=== PATIENT | female | born 1985 | race Caucasian/White ===

== ENCOUNTER → 2017-07-25 | Outpatient (CLI) | payer OTHER ==
--- NOTE | 2017-07-25 15:37 | US ---
EXAMINATION TYPE: Transabdominal DATE OF EXAM: 05/13/17 COMPARISON: NONE CLINICAL HISTORY: Z36 Confirma Dates. Confirm dates, 3, para 2 EXAM PERFORMED: Transabdominal (TA) EXAM MEASUREMENTS: GESTATIONAL AGE / DATING Physician Established: Not established yet Dates by LMP: (10 weeks/3 days) EDC: 02/17/2018 Dates by First Scan: This is 1st scan Dates by Current Scan for: (12 weeks/0 days) EDC: 02/06/2018 MATERNAL ANATOMY Uterus: 13.6 x 6.5 x 8.1cm, anteverted Right Ovary: 2.9 x 2.6 x 1.5cm Left Ovary: 3.1 x 2.4 x 1.5cm Post CDS / Adnexa: wnl Presence of free fluid: wnl Presence of corpus luteal cyst: not seen Presence of subchorionic bleed: 1.9 x 0.8 x 1.2cm complex area posterior to gestational sac, possible subchorionic bleed GESTATION / SURVEY CRL: 5.2cm (12 weeks/0 days) Yolk Sac (normal less than 6mm): 5.5mm Heart Rate: 169 bpm Rhythm: Normal IUP: Viable IUP Nuchal Translucency 10-14wks (normal less than 3mm): 1.6mm Date of LMP: 05/13/2017 Beta HcG (if available): Not available at time of exam Viable single IUP measuring 12 weeks 0 days with a heart rate 169bpm and an estimated delivery date o f 02/06/2018. IMPRESSION: 1. Single live intrauterine with a sonographic age of 12 weeks and 0 days and estimated autumn e of delivery of 02/06/2018, discordant with menstrual age. 2. Small subchorionic hemorrhage occupying less than 25% the gestational sac diameter.
== END | disposition home or self-care (01) ==
LOC: RADUSWWP 13:31
PROVIDERS: ATTEND Obstetrics & Gynecology
DX: O20.8 Other hemorrhage in early pregnancy (principal); Z3A.12 12 weeks gestation of pregnancy
CPT/HCPCS: 76801; 76813

== ENCOUNTER 2018-01-30 06:00 | Inpatient (IN) | payer MEDICAID, OTHER ==
[2018-01-30] MEDS ORDERED: TERBUTALINE 1 MG/ML VIAL SQ PRN (06:44)
[2018-01-30] MEDS ORDERED: CARBOPROST TROMETHAMINE 250 MCG/ML 1 ML AMP IM PRN (06:44)
[2018-01-30] MEDS ORDERED: OXYTOCIN 10 UNIT/ML 1 ML VIAL IM PRN (06:44)
[2018-01-30] MEDS ORDERED: METHYLERGONOVINE 0.2 MG/ML 1 ML AMP IM PRN (06:44)
[2018-01-30] MEDS ORDERED: LIDOCAINE 0.5% (PF) 5 MG/ML (50 ML SDV) SQ PRN (06:44)
[2018-01-30] MEDS ORDERED: OXYTOCIN 20 UNITS/1000 ML NS 1,000 ML IV SCH (06:45)
[2018-01-30] MEDS: LACTATED RINGERS 1,000 ML IV SCH ×3 (06:49→13:31)
[2018-01-30 07:19] VITALS: BMI 32.2
[2018-01-30 07:30] LABS: Basophils % (A) 0 %; Eosinophils # (A) 0.2 k/uL (0-0.7); Eosinophils % (A) 1 %; HCT 41.8 % (34.0-46.0); HGB 13.9 gm/dL (11.4-16.0); Lymphocytes % (A) 17 %; MCH 29.1 pg (25.0-35.0); MCHC 33.3 g/dL (31.0-37.0); MCV 87.4 fL (80.0-100.0); Mean Platelet Volume 7.7; Monocytes # (A) 0.6 k/uL (0-1.0); Monocytes % (A) 5 %; Neutrophils # (A) 8.6 k/uL (1.3-7.7); Neutrophils % (A) 74 %; Platelet Count 274 k/uL (150-450); RBC 4.78 m/uL (3.80-5.40); RDW 14.1 % (11.5-15.5); WBC 11.6 k/uL (3.8-10.6)
[2018-01-30] MEDS ORDERED: SODIUM CHLORIDE 0.9% 100 ML BAG ONE (10:09)
[2018-01-30] MEDS ORDERED: fentaNYL (PF) 50 MCG/ML 5 ML AMP ONE (10:09)
[2018-01-30] MEDS ORDERED: ROPIVACAINE 5MG/ML 20ML VIAL ONE (10:09)
[2018-01-30] MEDS ORDERED: LANOLIN CREAM 5 GM TUBE TOPICAL PRN (17:07)
[2018-01-30] MEDS ORDERED: ACETAMINOPHEN TAB 325 MG TAB PO PRN (17:07)
[2018-01-30] MEDS ORDERED: WITCH HAZEL 1 EACH MED..PAD TOPICAL PRN (17:07)
[2018-01-30] MEDS ORDERED: ZOLPIDEM 5 MG TAB PO PRN (17:07)
[2018-01-30] MEDS ORDERED: HYDROCORTISONE 2.5% RECTAL CREAM 30 GM TUBE RECTAL PRN (17:07)
[2018-01-30] MEDS ORDERED: diphenhydrAMINE 50 MG CAP PO PRN (17:07)
[2018-01-30] MEDS ORDERED: diphenhydrAMINE 50 MG/ML 1 ML VIAL IVP PRN ×2 (17:07)
[2018-01-30] MEDS ORDERED: BENZOCAINE/MENTHOL SPRAY 1 GM/SPRAY AEROSOL TOPICAL PRN (17:07)
[2018-01-30] MEDS ORDERED: SIMETHICONE 80 MG CHEWABLE PO PRN (17:07)
[2018-01-30] MEDS ORDERED: diphenhydrAMINE 25 MG CAP PO PRN (17:07)
--- NOTE | 2018-01-30 17:09 | P.HPOB ---
History of Present Illness H&P Date: 01/30/18 Chief Complaint: Intrauterine at 39 weeks': Induction of labor Patient is a 32-year-old at 39 weeks gestation arise for induction of labor. Her course has been, complicated by thyroid disease but her symptoms were essentially nonexistent and she was not started on thyroid medication. She'll need to have that followed up after delivery. She also had some anxiety but overall she is done well. Today her vital signs are stable and afebrile. Heart regular, lungs clear, extremities are without pain. She was dilated to 4 cm artificial rupture membranes and light meconium noted. heart tracings are reactive in the 130s to 140s category 1 tracing. Pertinent labs include O+ blood type Rh antibody was negative, rubella immune, hepatitis B surface antigen/RPR/HIV were all negative. She plans to use an epidural for analgesia. Assessment intrauterine at 39 weeks plan expect spontaneous vaginal delivery. Past Medical History History of Any Multi-Drug Resistant Organisms: None Reported Past Surgical History: Ear Surgery Additional Past Surgical History / Comment(s): childhood Past Anesthesia/Blood Transfusion Reactions: No Reported Reaction Past Psychological History: Anxiety, Depression Additional Psychological History / Comment(s): previously using medications for therapy, discontinued use with Smoking Status: Current every day smoker Past Alcohol Use History: None Reported Past Drug Use History: None Reported - Past Family History Mother Family Medical History: Diabetes Mellitus Medications and Allergies Home Medications Medication Instructions Recorded Confirmed Type 78/Iron/Folate 1/Dha 1 tab PO ONCE 01/30/18 01/30/18 History [Prenate Dha Softgel] Allergies Allergy/AdvReac Type Severity Reaction Status Date / Time No Known Allergies Allergy Verified 01/30/18 06:37 Exam Osteopathic Statement: *. No significant issues noted on an osteopathic structural exam other than those noted in the History and Physical/Consult. Intake and Output 01/30/18 01/30/18 01/30/18 06:59 14:59 22:59 Other: Weight 82.554 kg 82.554 kg Results Result Diagrams: 01/30/18 06:50 Abnormal Lab Results - Last 24 Hours (Table) 01/30/18 Range/Units 06:50 WBC 11.6 H (3.8-10.6) k/uL Neutrophils # 8.6 H (1.3-7.7) k/uL
--- NOTE | 2018-01-30 17:11 | P.PROBDLV ---
Vaginal Delivery Note - . Vaginal Delivery Note: Patient progressed to complete and pushing with spontaneous vaginal delivery of a viable male from straight oh BP position. Ring her pushing she initially was what felt like left occiput transverse but the baby turned and became street OPD during the pushing process. There was also noted to be variable decelerations throughout the latter part of the stage one and throughout stage II of labor. They did go from a baseline of approximately 140 down to 80s to 90s but did return shortly after contraction and did return to baseline with good variability throughout. Following deliver the head shoulders were easily delivered and the nuchal cord 1 was easily reduced. Once this was completed mouth and nares were bulb suctioned and baby was placed on mother's abdomen where the umbilical cord was allowed to pulsate for 45 seconds prior to clamping and cutting. Nursery personnel was present to assume care. Placenta was then delivered intact and Pitocin was added to the IV. The very small first-degree of abrasion that was left alone following delivery. Both mother and baby are stable following delivery.
[2018-01-30] MEDS: IBUPROFEN 600 MG TAB PO PRN (17:19)
[2018-01-30] MEDS: SENNOSIDES-DOCUSATE SODIUM 1 EACH TAB PO SCH (19:39)
[2018-01-31] MEDS: IBUPROFEN 600 MG TAB PO PRN ×4 (00:24→20:01)
[2018-01-31] MEDS: SENNOSIDES-DOCUSATE SODIUM 1 EACH TAB PO SCH ×2 (07:07→20:02)
--- NOTE | 2018-01-31 08:54 | P.PNOBGVD ---
Subjective - Subjective Principal diagnosis: day 1 Interval history: Doing very well. Ambulating, voiding and tolerating her diet. Patient reports: Reports appetite normal, Reports voiding normally, Reports pain well controlled, Reports ambulating normally Ellinger: in NICU Objective - Latest Vital Signs Latest vital signs: Vital Signs Temp Pulse Resp BP 01/31/18 07:10 97.1 F L 68 18 108/82 01/31/18 04:00 98.1 F 72 16 105/49 01/31/18 00:00 97.9 F 79 16 118/75 01/30/18 20:00 98 F 77 16 127/61 01/30/18 19:09 79 16 125/72 01/30/18 18:39 98.3 F 90 16 129/79 01/30/18 18:09 82 16 127/74 01/30/18 17:54 92 16 124/74 01/30/18 17:39 79 16 122/66 01/30/18 17:24 91 16 120/56 01/30/18 17:09 98.2 F 96 16 126/59 Intake and Output 01/30/18 01/31/18 01/31/18 22:59 06:59 14:59 Intake Total 29.95 600 Balance 29.95 600 Intake: Intake, IV Titration 29.95 Amount Oxytocin 20 Units/1000 ml 29.95 Ns 1,000 ml @ 1 MILLIUNIT/MIN 3 mls/hr IV .Q24H [facility] Rx#:[id number] Oral 600 Other: # Voids 1 2 - Exam Lungs: bilateral: normal Chest: Normal S1, Normal S2 Extremities: Present: normal Abdomen: Present: normal appearance, soft Uterus: Present: normal, firm
[2018-02-01 04:10] VITALS: RESP 16
[2018-02-01] MEDS: IBUPROFEN 600 MG TAB PO PRN ×2 (04:52→12:09)
--- NOTE | 2018-02-01 07:24 | P.DS ---
Providers Date of admission: 01/30/18 06:33 Expected date of discharge: 02/01/18 Attending physician: Nimesh Parisi Primary care physician: Stated None - Discharge Diagnosis(es) (1) Normal vaginal delivery Current Visit: Yes Status: Acute Hospital Course: Patient presented for induction of labor. She underwent a normal vaginal delivery. Her course was uncomplicated. She'll be discharged home day #2 in stable condition to follow-up with Dr. Muhammad in 6 weeks. Plan - Discharge Summary New Discharge Prescriptions: New Ibuprofen [Motrin] 600 mg PO Q6HR PRN #30 tab PRN Reason: Pain No Action 78/Iron/Folate 1/Dha [Prenate Dha Softgel] 1 tab PO ONCE Discharge Medication List 78/Iron/Folate 1/Dha [Prenate Dha Softgel] 1 tab PO ONCE 01/30/18 [ History] Ibuprofen [Motrin] 600 mg PO Q6HR PRN #30 tab 01/31/18 [Rx] Follow up Appointment(s)/Referral(s): Nimesh Parisi DO [Doctor of Osteopathic Medicine] - 6 Weeks Activity/Diet/Wound Care/Special Instructions: No heavy lifting, limit stairs and driving and pelvic rest. If any high temperatures, heavy bleeding, or severe pain call my office Discharge Disposition: HOME SELF-CARE
[2018-02-01 08:11] VITALS: BP 118/72; PULSE 66; TEMP 98.8
--- NOTE | 2018-02-01 09:31 | P.PN ---
Progress Note - Text Progress Note Date: 02/01/18 32-year-old female status post vaginal delivery on 01/31/2018. Patient had epidural placed during stage II of and states that with placement of epidural she noticed a tingling sensation down her right leg. Also during epidural infusion she experienced slightly more numbness in her right leg than compared to her left. She had a relatively uneventful vaginal delivery that was not prolonged. Once Epidural catheter was removed, she states that she still had some residual weakness and "tingling sensation in her right leg". She is able to ambulate without assistance she states that she needs to keep her leg moving and ordered to decrease the nonpainful paresthesia sensation she gets. With regards to sensation of the left compared to right leg, she has some reduced sensation along the femoral nerve on the right leg compared to the left at the levels of medial malleolus tibial tuberosity, and medial femoral condyle. She does state there is some decreased sensation along sural nerve distribution as well which includes the right lateral sensation of the foot as well as fifth digit. Per patient, she states it is improving slightly day by day. I discussed with her that nerve injury are rare with childbirth, but do happen. Any paresthesias noted with epidural placement are not permanent if that is the source. She also had a vaginal delivery and her leg or in stirrups and femoral nerve palsy is always a possibility in that situation as well. With regard to treatment options I informed her that we consider on Neurontin to be taken at night and we will contact her on Friday, February 05 as a follow-up to see how she is progressing. If it's not improving do not have her take the Neurontin twice a day and refer her to a neurologist for EMG with nerve conduction studies. She understands his treatment plan, and she is okay for being discharged today.
[2018-02-01] MEDS: SENNOSIDES-DOCUSATE SODIUM 1 EACH TAB PO SCH (12:10)
== END 2018-02-01 13:17 | disposition home or self-care (01) | DRG 807 ==
LOC: 4FBP 06:33
PROVIDERS: ADMIT Obstetrics & Gynecology; ATTEND Obstetrics & Gynecology
PROC: 00HU33Z Insertion of Infusion Device into Spinal Canal, Percutaneous Approach (ICD-10-PCS; principal; 2018-01-30)
PROC: 3E033VJ Introduction of Other Hormone into Peripheral Vein, Percutaneous Approach (ICD-10-PCS; principal; 2018-01-30)
PROC: 3E0R3NZ Introduction of Analgesics, Hypnotics, Sedatives into Spinal Canal, Percutaneous Approach (ICD-10-PCS; principal; 2018-01-30)
PROC: 10E0XZZ Delivery of Products of Conception, External Approach (ICD-10-PCS; principal; 2018-01-30)
PROC: 10907ZC Drainage of Amniotic Fluid, Therapeutic from Products of Conception, Via Natural or Artificial Opening (ICD-10-PCS; principal; 2018-01-30)
DX: O99.284 Endocrine, nutritional and metabolic diseases complicating childbirth (principal); Z37.0 Single live birth; E07.9 Disorder of thyroid, unspecified; F17.200 Nicotine dependence, unspecified, uncomplicated; O99.334 Smoking (tobacco) complicating childbirth; O76 Abnormality in fetal heart rate and rhythm complicating labor and delivery; O77.0 Labor and delivery complicated by meconium in amniotic fluid; Z3A.39 39 weeks gestation of pregnancy; Z83.3 Family history of diabetes mellitus
CPT/HCPCS: 85025; 86850; 86900; 86901; 88307

== ENCOUNTER → 2023-01-29 | Outpatient (CLI) | payer OTHER ==
[2023-01-29 10:46] VITALS: BP 123/83; PULSE 85; RESP 15; TEMP 97.6
--- NOTE | 2023-01-29 11:08 | XR ---
EXAMINATION TYPE: XR skull complete DATE OF EXAM: 01/29/2023 COMPARISON: NONE HISTORY: M54.81 Bilateral Occipital Neuralgia, [id number] TECHNIQUE: 4 views of the bony calvarium submitted FINDINGS: No fracture or osseous lesion identified. Sutures appear symmetric. IMPRESSION: Negative
--- NOTE | 2023-01-29 11:09 | XR ---
EXAMINATION TYPE: XR cervical spine limited DATE OF EXAM: 01/29/2023 CLINICAL HISTORY: pain TECHNIQUE: 3 views of the cervical spine are submitted. COMPARISON: None. FINDINGS: There is satisfactory in alignment without evidence of acute fracture or dislocation. The pre-vertebral soft tissue appears within normal limits.Disc spaces are well preserved. The C1-C2 art iculation is unremarkable on the open mouth view. IMPRESSION: No acute fracture or dislocation is seen in the cervical spine.
--- NOTE | 2023-01-29 14:09 | P.PAINPG ---
PQRS Measure Charge Sheet Comment: HISTORY OF PRESENT ILLNESS: A 37 yr old female as a referral from Dr Blum presents today w severe and chronic REAVES and neck pain secondary to occipital neuralgia/cervicogenic headache for evaluation. Pt states pain level is provoked at 9/10 in intensity, constant, localized in the base of the head, predominantly axial, throbbing in character w occasional shooting pain up the scalp towards the eyes. Pain is provoked by laying on her back. Pain is alleviated by medications (Ibu), heat, manual massage, repositioning and rest. PMH: OA, MDD/ Anxiety PSH: Ear Surgery SH: Daily tobacco use, No ETOH abuse, No illicit drug use FH: Mo- NIDDM All: See list Meds: See list REVIEW OF ORGAN SYSTEMS: CONSTITUTIONAL: No fevers or chills. No recent weight loss. NEUROLOGICAL: + numbness and tingling along the distal extremities. No seizure disorders or headaches. MUSCULOSKELETAL: + pain PSYCHIATRIC: Denies current depression or suicidal thoughts. Physical Examinations : Constitutional : Cooperative , not in acute distress . Neurologic : Cranial nerve II to XII intact. No focal neurological deficits. Psychiatric : alert & oriented x 3. Matching mood & appropriate affect. Judgment & insight intact. Musculoskeletal : Cervical Spine BL ELY TTP Motor strength in the deltoid and biceps: Normal right side. Normal Left side Motor strength biceps and the wrist extensors: Normal right side . Normal left side Motor strength in the triceps muscle: Normal right side. Normal left side Deep tendon reflexes: Normal at the biceps. Normal at Brachioradialis. Normal at triceps Vertebral body tenderness to deep palpation over Cervical facet loading test: positive bilaterally Spurling test: positive bilaterally Neck distraction test: positive bilaterally Mike sign: positive bilaterally Lumbar spine Motor strength lower extremities ,thigh and legs 5/5 Right side , 5/5 Left side Deep tendon reflexes : Normal Knee Jerk. Normal Ankle Jerk Vertebral body tenderness over [place] Test positive Lumbar facet Loading Test: positive Right / positive Left Range of motion of the lumbar spine Flexion 30 degrees, extension 10 degrees Straight Leg Raise test: Left/ Right positive at degrees Sandy test: positive right / positive left. Severe tenderness over the Sacroiliac joint on the Right / Left sides Gaenslen test: positive bilaterally Seated flexion test: positive bilaterally. Sacral spine : Severe tenderness over the Sacroiliac joint: right side / left side Range of motion: Flexion of the lumbar spine <60 degrees Range of motion: Extension of the lumbar spine <20 degrees Gaenslen's Test positive Sandy test: positive right side / left side Thigh Thrust Test Sacral Thrust Test Imaging: MRI brain without contrast from 07/09/14 reviewed MRI noncontrast of the cervical spine from 07/09/14 reviewed Assessment/ Plan : Occipital Neuralgia/ Cervicogenic REAVES Recommendation of x ray of skull/ cervical spine to rule out organic causes M54.81, G44.208. RTC in 2 wks for a re evaluation. All questions answered. I have spent greater than 30 minutes on patient care today. Dr Carbajal was available by phone for the evaluation of this patient. The time was used to review the medical records including relevant urine studies and Prescription history (MAPs), review of the available imaging, evaluation and examination of the patient, coordination of care with the medical staff and if applicable referring physicians, as well as creation of the medical record PQRS Narrative: Smoking Status Current every day smoker Home Medications: Ambulatory Orders 78/Iron/Folate 1/Dha [Prenate Dha Softgel] 1 tab PO ONCE 01/30/18 Ibuprofen [Motrin] 600 mg PO Q6HR PRN #30 tab 01/31/18 Controlled Substance Measures - Controlled Substance Measures Is patient prescribed a controlled substance at discharge?: No
== END ==
LOC: PNWHC3 09:42
PROVIDERS: ATTEND Specialist
DX: G44.209 Tension-type headache, unspecified, not intractable (principal); M54.81 Occipital neuralgia; G44.86 Cervicogenic headache; F17.200 Nicotine dependence, unspecified, uncomplicated; M19.90 Unspecified osteoarthritis, unspecified site; F41.9 Anxiety disorder, unspecified; F32.9 Major depressive disorder, single episode, unspecified
CPT/HCPCS: 70260; 72040; G0463; 99211

== ENCOUNTER → 2023-02-28 | Outpatient (CLI) | payer OTHER ==
--- NOTE | 2023-03-04 11:45 | MR ---
EXAMINATION TYPE: MR brain/cspine wo DATE OF EXAM: 02/28/2023 5:45 PM COMPARISON: NONE HISTORY: Headaches, neck pain Multiplanar and multispin-echo imaging of the brain was performed . The ventricles, basal cisterns and sulci overlying the cerebral convexities are within normal limits. There is no evidence for midline shift or mass effect. Acute intracranial hemorrhage or extra-axial collection is not evident. The brain parenchyma reveals no abnormal increased signal. No acute edema is identified. The paranasal sinuses and mastoid air cells are well-aerated. IMPRESSION: Unremarkable MRI of the brain. EXAMINATION TYPE: MR brain/cspine wo DATE OF EXAM: 02/28/2023 5:45 PM COMPARISON: NONE HISTORY: Headaches, neck pain Multiplanar MultiSpin echo imaging of the cervical spine was performed. Comparison: none C2-C3: No evidence for degenerative disc disease. No disc bulge/herniation or protrusion. No Canal stenosis. Foramina are patent bilaterally. C3-C4: No evidence for degenerative disc disease. No disc bulge/herniation or protrusion. No Canal stenosis. Foramina are patent bilaterally. C4-C5: No evidence for degenerative disc disease. No disc bulge/herniation or protrusion. No Canal stenosis. Foramina are patent bilaterally. C5-C6: No evidence for degenerative disc disease. No disc bulge/herniation or protrusion. No Canal stenosis. Foramina are patent bilaterally. C6-C7: No evidence for degenerative disc disease. No disc bulge/herniation or protrusion. No Canal stenosis. Foramina are patent bilaterally. C7-T1: No evidence for degenerative disc disease. No disc bulge/herniation or protrusion. No Canal stenosis. Foramina are patent bilaterally. Cervical segments are intact. There is normal alignment. Cervical spinal cord is of normal signal. Craniovertebral junction relationships are within normal limits. IMPRESSION: 1. Unremarkable study
== END | disposition home or self-care (01) ==
LOC: RADMRIMAIN 16:13
PROVIDERS: ATTEND Specialist
DX: M54.81 Occipital neuralgia (principal); G44.209 Tension-type headache, unspecified, not intractable; M54.2 Cervicalgia
CPT/HCPCS: 70551; 72141

== ENCOUNTER → 2023-03-19 | Outpatient (CLI) | payer OTHER ==
[2023-03-19 15:46] LABS: Basophils % (A) 1.5 %; Eosinophils # (A) 0.14 X 10*3/uL (0.04-0.35); Eosinophils % (A) 2.1 %; HCT 37.1 % (37.2-46.3); HGB 11.9 g/dL (12.0-15.0); Lymphocytes # (A) 1.67 X 10*3/uL (0.90-5.00); Lymphocytes % (A) 25.1 %; MCH 28.1 pg (27.0-32.0); MCHC 32.1 g/dL (32.0-37.0); MCV 87.7 FL (80.0-97.0); Mean Platelet Volume 10.5 FL (9.5-12.2); Monocytes # (A) 0.49 X 10*3/uL (0.20-1.00); Monocytes % (A) 7.4 %; NRBC Per 100 WBC 0 X 10*3/uL (0.00-0.01); Neutrophils # (A) 4.23 X 10*3/uL (1.80-7.70); Neutrophils % (A) 63.6 %; Platelet Count 332 X 10*3/uL (140-440); RBC 4.23 X 10*6/uL (4.10-5.20); RDW 13.8 % (11.5-14.5); WBC 6.65 X 10*3/uL (4.50-10.00)
== END | disposition home or self-care (01) ==
LOC: LABPAT 10:25
PROVIDERS: ATTEND Obstetrics & Gynecology
DX: Z01.812 Encounter for preprocedural laboratory examination (principal); N93.8 Other specified abnormal uterine and vaginal bleeding
CPT/HCPCS: 36415; 85025

== ENCOUNTER → 2023-03-19 | Outpatient (CLI) | payer OTHER ==
[2023-03-19 10:43] VITALS: BP 128/85; PULSE 78; RESP 15; TEMP 98.1
--- NOTE | 2023-03-19 15:00 | P.PAINPG ---
PQRS Measure Charge Sheet Comment: HISTORY OF PRESENT ILLNESS: A 37 yr old female presents today w severe and chronic REAVES and neck pain secondary to occipital neuralgia/ cervicogenic headache for evaluation. Pt states pain level is provoked at 9/10 in intensity, constant, localized in the base of the head, predominantly axial, throbbing in character w occasional shooting pain up the scalp towards the eyes. Pain is provoked by laying on her back or loud noises. Pain is alleviated by medications, heat, manual massage, repositioning and rest. Interventional procedures include Medications include Ibu REVIEW OF ORGAN SYSTEMS: CONSTITUTIONAL: No fevers or chills. No recent weight loss. NEUROLOGICAL: + numbness and tingling along the distal extremities. No seizure disorders or headaches. MUSCULOSKELETAL: + pain PSYCHIATRIC: Denies current depression or suicidal thoughts. Physical Examinations : Constitutional : Cooperative , not in acute distress . Neurologic : Cranial nerve II to XII intact. No focal neurological deficits. Psychiatric : alert & oriented x 3. Matching mood & appropriate affect. Judgment & insight intact. Musculoskeletal : Cervical Spine BL ELY TTP Motor strength in the deltoid and biceps: Normal right side. Normal Left side Motor strength biceps and the wrist extensors: Normal right side . Normal left side Motor strength in the triceps muscle: Normal right side. Normal left side Deep tendon reflexes: Normal at the biceps. Normal at Brachioradialis. Normal at triceps Vertebral body tenderness to deep palpation over Cervical facet loading test: positive bilaterally Spurling test: positive bilaterally Neck distraction test: positive bilaterally Mike sign: positive bilaterally Lumbar spine Motor strength lower extremities ,thigh and legs 5/5 Right side , 5/5 Left side Deep tendon reflexes : Normal Knee Jerk. Normal Ankle Jerk Vertebral body tenderness over [place] Test positive Lumbar facet Loading Test: positive Right / positive Left Range of motion of the lumbar spine Flexion 30 degrees, extension 10 degrees Straight Leg Raise test: Left/ Right positive at degrees Sandy test: positive right / positive left. Severe tenderness over the Sacroiliac joint on the Right / Left sides Gaenslen test: positive bilaterally Seated flexion test: positive bilaterally. Sacral spine : Severe tenderness over the Sacroiliac joint: right side / left side Range of motion: Flexion of the lumbar spine <60 degrees Range of motion: Extension of the lumbar spine <20 degrees Gaenslen's Test positive Sandy test: positive right side / left side Thigh Thrust Test Sacral Thrust Test Imaging: MRI brain without contrast from 02/28/23 reviewed MRI noncontrast of the cervical spine from 02/28/23 reviewed Assessment/ Plan : Occipital Neuralgia/ Cervicogenic REAVES Recommendation of BL ELY injections #1. May need a series of injections for optimal pain relief. Risks, benefits of procedure discussed and patient verbalized understanding. Protocol for discontinuation/continuation of medications surrounding procedure discussed. All questions answered. I have spent greater than 30 minutes on patient care today. Dr Carbajal was available by phone for the evaluation of this patient. The time was used to review the medical records including relevant urine studies and Prescription history (MAPs), review of the available imaging, evaluation and examination of the patient, coordination of care with the medical staff and if applicable referring physicians, as well as creation of the medical record PQRS Narrative: Smoking Status Current every day smoker Hx Alcohol Use (MH) No Home Medications: Ambulatory Orders 78/Iron/Folate 1/Dha [Prenate Dha Softgel] 1 tab PO ONCE 01/30/18 Ibuprofen [Motrin] 600 mg PO Q6HR PRN #30 tab 01/31/18 Controlled Substance Measures - Controlled Substance Measures Is patient prescribed a controlled substance at discharge?: No
== END ==
LOC: PNWHC3 09:49
PROVIDERS: ATTEND Anesthesiology
DX: M54.81 Occipital neuralgia (principal); G44.86 Cervicogenic headache; F17.200 Nicotine dependence, unspecified, uncomplicated
CPT/HCPCS: 99211